=== PATIENT | female | born 1950 | race Caucasian/White ===

== ENCOUNTER 2017-07-19 10:26 | Emergency (ER) | payer OTHER, MEDICARE ==
[~2017-07-19] VITALS: Ht 160 cm; Wt 82.1 kg
[~2017-07-19 10:26] MED LIST: CALC500T12; HUMULIN; HYDR25TA6; IBUP-725; LANTUS; LOSA25TA2; MTF1000T; NIAC500T81; OMEP20TA42; SIMV80TA
[2017-07-19 10:30] VITALS: Ht 160 cm; Wt 82.1 kg
--- NOTE | 2017-07-19 12:14 | ERD ---
ER Documentation Chief Complaint Chief Complaint abdominal pain s/p fall 2 weeks ago HPI The patient is a 66-year-old female, presenting to the ER because of right upper quadrant abdominal pain for 2 weeks after she fell. It is 9 over 10, worse with movement, associated with constipation. She denies fever, chills, neck pain, chest pain, dyspnea, vomiting, dysuria. He does not smoke nor drink Past medical history: Hypertension, diabetes mellitus, dyslipidemia Past Surgical history: ROS All systems reviewed and are negative except as per history of present illness. Medications Home Meds Active Scripts Acetaminophen* (Tylenol*) 325 Mg Tablet, 2 TAB PO Q6 Y for PAIN AND OR ELEVATED TEMP, #20 TAB Prov:KIM COX MD 07/19/17 Reported Medications [Humulin] No Conflict Check 03/01/11 Lantus 03/01/11 Omeprazole (Omeprazole) 20 Mg Tablet. 03/01/11 Losartan Potassium* (Cozaar*) 25 Mg Tablet 03/01/11 Calcium Carbonate* (Oysco-500*) 1 Tab Tablet 03/01/11 Niacin* (Niacin*) 500 Mg Tablet 03/01/11 Hydrochlorothiazide (Hydrochlorothiazide) 25 Mg Tablet 01/01/10 Ibuprofen (Motrin) 400 Mg Tablet 01/01/10 Metformin* (Glucophage*) 1,000 Mg Tablet 01/01/10 Simvastatin* (Zocor*) 80 Mg Tablet 01/01/10 Allergies Allergies: Coded Allergies: Codeine (Verified Allergy, Mild, VOMITING, 07/18/12) ibuprofen (Verified Allergy, 07/18/12) PMhx/Soc History of Surgery: No Anesthesia Reaction: No Hx Neurological Disorder: No Hx Respiratory Disorders: No Hx Cardiac Disorders: Yes (HTN, HYPERLIPIDEMIA) Hx Psychiatric Problems: No Hx Miscellaneous Medical Probl: Yes (HTN, Cholesterol, Arthritis, DM) Hx Alcohol Use: No Hx Substance Use: No Hx Tobacco Use: No Smoking Status: Never smoker Physical Exam Vitals Vital Signs Date Time Temp Pulse Resp B/P Pulse Ox O2 Delivery O2 Flow Rate FiO2 07/19/17 17:17 98.7 89 16 157/70 99 Room Air 07/19/17 10:30 98.7 86 18 155/74 98 Physical Exam Const: No acute distress. Head: Atraumatic. Eyes: Normal Conjunctiva. ENT: Normal External Ears, Nose and Mouth. Neck: Full range of motion. No meningismus. Resp: Clear to auscultation bilaterally. Cardio: Regular rate and rhythm. Abd: Soft, non distended, normal bowel sounds, mild right upper quadrant tenderness, no rigidity, rebound, CVA tenderness Skin: No petechiae or rashes. Back: No midline or flank tenderness. Ext: No cyanosis, or edema. Neur: Awake and alert. No focal deficit Psych: Normal Mood and Affect. Result Diagram: 07/19/17 1255 07/19/17 1255 Results 24 hrs Laboratory Tests Test 07/19/17 12:55 07/19/17 13:02 White Blood Count 8.110^3/ul Red Blood Count 4.3610^6/ul Hemoglobin 13.7g/dl Hematocrit 41.3% Mean Corpuscular Volume 94.7fl Mean Corpuscular Hemoglobin 31.4pg Mean Corpuscular Hemoglobin Concent 33.2g/dl Red Cell Distribution Width 12.9% Platelet Count 38750^3/UL Mean Platelet Volume 10.7fl Neutrophils % 62.4% Lymphocytes % 24.1% Monocytes % 6.4% Eosinophils % 6.3% Basophils % 0.6% Nucleated Red Blood Cells % 0.0/100WBC Neutrophils # 5.110^3/ul Lymphocytes # 2.010^3/ul Monocytes # 0.510^3/ul Eosinophils # 0.510^3/ul Basophils # 0.110^3/ul Nucleated Red Blood Cells # 0.010^3/ul Sodium Level 145mmol/L Potassium Level 4.0mmol/L Chloride Level 103mmol/L Carbon Dioxide Level 30mmol/L Anion Gap 16 Blood Urea Nitrogen 14mg/dl Creatinine 0.72mg/dl Glucose Level 78mg/dl Calcium Level 9.3mg/dl Total Bilirubin 0.2mg/dl Direct Bilirubin 0.00mg/dl Indirect Bilirubin 0.2mg/dl Aspartate Amino Transf (AST/SGOT) 25IU/L Alanine Aminotransferase (ALT/SGPT) 35IU/L Alkaline Phosphatase 117IU/L Total Protein 7.7g/dl Albumin 4.2g/dl Globulin 3.50g/dl Albumin/Globulin Ratio 1.20 Lipase 35U/L Bedside Urine pH (LAB) 6.5 Bedside Urine Protein (LAB) Negative Bedside Urine Glucose (UA) Negative Bedside Urine Ketones (LAB) Negative Bedside Urine Blood Negative Bedside Urine Nitrite (LAB) Negative Bedside Urine Leukocyte Esterase (L Negative Current Medications Medications (Trade) Dose Ordered Sig/Ashley Route PRN Reason Start Time Stop Time Status Last Admin Dose Admin IV Flush 10 ml 10 ml STK-MED ONCE .ROUTE 07/19/17 14:15 07/19/17 14:16 DC Sodium Chloride (NS) 100 ml @ ud STK-MED ONCE .ROUTE 07/19/17 14:15 07/19/17 14:16 DC Iodixanol (Visipaque Locm) 100 ml STK-MED ONCE .ROUTE 07/19/17 14:15 07/19/17 14:16 DC Procedures/MDM [place] [address] Radiology Main Line: [phone] DIAGNOSTIC IMAGING REPORT Patient: DAMEON SANCHES : 1950 Age: 66 Sex: F MR #: [id number] DOS: 07/19/17 1227 Ordering MD: KIM COX MD Location: E/R Room/Bed: PROCEDURE: XR Chest. CLINICAL INDICATION: Abdominal pain. TECHNIQUE: Single AP portable chest. COMPARISON: No prior Chest x-ray FINDINGS: The cardiomediastinal silhouette is within normal limits of size. the lungs are clear without pleural effusion or focal consolidation. No pneumothorax. The osseous structures and soft tissues are unremarkable. IMPRESSION: 1. No evidence for active cardiopulmonary disease. RPTAT:AAJJ Physician Hoang Date Time Electronically viewed and signed by Physician Hoang on 07/19/2017 13:34 SURENDRA/ CC: KIM COX MD [place] [address] Radiology Main Line: [phone] DIAGNOSTIC IMAGING REPORT Patient: DAEMON SANCHES : 1950 Age: 66 Sex: F [id number] [id number] DOS: 07/19/17 1227 Ordering MD: KIM COX MD Location: E/R Room/Bed: PROCEDURE: CT Abdomen and Pelvis with contrast. CLINICAL INDICATION: Abdominal pain for 2 weeks status post fall. TECHNIQUE: Multiple contiguous axial CT images of the abdomen and pelvis were obtained following the administration of 90 cc of Visipaque 320. Coronal and sagittal reconstructions were also performed. DICOM images are available. CTDIvol (mGy): 20.22; Total Exam DLP (mGy-cm): 1146.02. One or more of the following dose reduction techniques were utilized: - Automated exposure control. - Adjustment of the mA and/or kV according to patient size. - Use of iterative reconstruction technique. COMPARISON: None available. FINDINGS: Limited imaging of the lower thorax demonstrates a tiny 4-5 mm nodule of the right middle lobe. There is a small 1.7 cm hypodense structure within the posterior right hepatic lobe. The hepatic and portal veins are patent. The gallbladder, spleen, pancreas and adrenal glands are unremarkable. The kidneys are symmetric in size and enhancement. There is no hydronephrosis or abnormal perinephric inflammation. There are no ureteral stones. Scattered few tiny simple cysts are seen bilaterally. The abdominal aorta is normal in caliber. Atherosclerotic calcification is observed. There is no periaortic / retroperitoneal lymphadenopathy. The stomach and small intestines are unremarkable. Diffuse diverticulosis is observed. A moderate volume of stool seen throughout the colon, particularly within the rectum. The appendix is normal. There are no focal inflammatory changes of the mesentery. There is no mesenteric lymphadenopathy. There is no ascites. The bladder, uterus and adnexa are unremarkable. There is no free pelvic fluid. There is no pelvic sidewall or inguinal lymphadenopathy. Small bilateral fat containing inguinal hernias are present. Degenerative changes of the lumbar spine are present. Body wall soft tissues are unremarkable. IMPRESSION: No evidence of abdominopelvic mass, lymphadenopathy or acute inflammatory pathology. Diverticulosis. No evidence of diverticulitis. Small 1.7 cm indeterminate hypodensity within the posterior right hepatic lobe. Routine follow up with CT or MRI abdomen with without contrast may be obtained. Tiny right middle lobe pulmonary nodule. Small bilateral fat containing inguinal hernias. RPTAT: HLST .La Nena Merino MD, MD Date Time Electronically viewed and signed by .La Nena Merino MD, MD on 07/19/2017 15:03 .T/ CC: KIM COX MD MEDICAL MAKING DECISION: The patient is a 66-year-old female, presenting with acute abdominal pain of unclear etiology, Possible hepatic lesion, right middle lobe nodule. She is stable for outpatient follow-up The differential diagnoses considered include but are not limited to cholelithiasis, cholecystitis, cystitis, pancreatitis, hepatitis, gastritis, peptic ulcer disease, gastric ulcer, appendicitis, diverticulitis, cholangitis, choledocholithiasis, partial small bowel obstruction. Departure Diagnosis: Primary Impression: Abdominal pain Additional Impressions: Lung nodule, solitary Liver mass Condition: Good Comments She was discharged with Motrin I discussed the findings with the patient. I advised the patient to follow-up with the primary physician in about 1-2 days for reevaluation and referral to gastroenterology for further evaluation of the hepatic mass and perfect binder setter for further evaluation of the lung mass, sooner if needed and return if any concern. Disclaimer: Inadvertent spelling and grammatical errors are likely due to EHR/ dictation software use and do not reflect on the overall quality of patient care. Also, please note that the electronic time recorded on this note does not necessarily reflect the actual time of the patient encounter. KIM COX MD Jul 19, 2017 12:14
[2017-07-19 13:04] LABS: URINE BLOOD (Dip) POC Negative (NEGATIVE)
[2017-07-19 13:15] LABS: BASOPHIL # 0.1 10^3/ul (0.0-0.1); BASOPHILS % 0.6 % (0.0-2.0); EOSINOPHILS # 0.5 10^3/ul (0.0-0.5); EOSINOPHILS % 6.3 % (0.0-7.0); HEMATOCRIT 41.3 % (37.0-47.0); HEMOGLOBIN 13.7 g/dl (12.0-16.0); LYMPHOCYTES % 24.1 % (15.0-51.0); MEAN CORPUSCULAR HEMOGLOBIN 31.4 pg (29.0-33.0); MEAN CORPUSCULAR HGB CONC 33.2 g/dl (32.0-37.0); MEAN CORPUSCULAR VOLUME 94.7 fl (82.0-101.0); MEAN PLATELET VOLUME 10.7 fl (7.4-10.4); MONOCYTE # 0.5 10^3/ul (0.3-0.9); MONOCYTES % 6.4 % (0.0-11.0); NEUTROPHIL # 5.1 10^3/ul (1.6-7.5); NEUTROPHILS % 62.4 % (39.0-77.0); PLATELET COUNT 249 10^3/UL (140-415); RED BLOOD COUNT 4.36 10^6/ul (4.20-5.40); RED CELL DISTRIBUTION WIDTH 12.9 % (11.5-14.5); WHITE BLOOD COUNT 8.1 10^3/ul (4.8-10.8)
[2017-07-19 13:34] LABS: ALBUMIN 4.2 g/dl (3.3-4.9); ALBUMIN/GLOBULIN RATIO 1.2; BILIRUBIN,INDIRECT 0.2 mg/dl (0-1.1); BILIRUBIN,TOTAL 0.2 mg/dl (0.2-1.3); CALCIUM 9.3 mg/dl (8.4-10.2); CREATININE 0.72 mg/dl (0.44-1.00); TOTAL PROTEIN 7.7 g/dl (6.1-8.1)
--- NOTE | 2017-07-19 13:34 | RADRPT ---
PROCEDURE: XR Chest. CLINICAL INDICATION: Abdominal pain. TECHNIQUE: Single AP portable chest. COMPARISON: No prior Chest x-ray FINDINGS: The cardiomediastinal silhouette is within normal limits of size. the lungs are clear without pleura l effusion or focal consolidation. No pneumothorax. The osseous structures and soft tissues are unr emarkable. IMPRESSION: 1. No evidence for active cardiopulmonary disease. RPTAT:AAJJ Bryon Siegel Physician Date Time Electronically viewed and signed by Bryon Siegel Physician on 07/19/2017 13:34 SURENDRA/
[2017-07-19] MEDS ORDERED: SOD CHLORIDE 0.9% 100 ML ONE (14:15)
[2017-07-19] MEDS ORDERED: IODIXANOL LOCM 100 ML BTL ONE (14:15)
--- NOTE | 2017-07-19 15:03 | RADRPT ---
PROCEDURE: CT Abdomen and Pelvis with contrast. CLINICAL INDICATION: Abdominal pain for 2 weeks status post fall. TECHNIQUE: Multiple contiguous axial CT images of the abdomen and pelvis were obtained following t he administration of 90 cc of Visipaque 320. Coronal and sagittal reconstructions were also perform ed. DICOM images are available. CTDIvol (mGy): 20.22; Total Exam DLP (mGy-cm): 1146.02. One or more of the following dose reduction techniques were utilized: - Automated exposure control. - Adjustment of the mA and/or kV according to patient size. - Use of iterative reconstruction technique. COMPARISON: None available. FINDINGS: Limited imaging of the lower thorax demonstrates a tiny 4-5 mm nodule of the right middle lobe. There is a small 1.7 cm hypodense structure within the posterior right hepatic lobe. The hepatic and portal veins are patent. The gallbladder, spleen, pancreas and adrenal glands are unremarkable. The kidneys are symmetric in size and enhancement. There is no hydronephrosis or abnormal perinephr ic inflammation. There are no ureteral stones. Scattered few tiny simple cysts are seen bilaterally . The abdominal aorta is normal in caliber. Atherosclerotic calcification is observed. There is no per iaortic / retroperitoneal lymphadenopathy. The stomach and small intestines are unremarkable. Diffuse diverticulosis is observed. A moderate vo lume of stool seen throughout the colon, particularly within the rectum. The appendix is normal. T here are no focal inflammatory changes of the mesentery. There is no mesenteric lymphadenopathy. T here is no ascites. The bladder, uterus and adnexa are unremarkable. There is no free pelvic fluid. There is no pelvic sidewall or inguinal lymphadenopathy. Small bilateral fat containing inguinal hernias are present. Degenerative changes of the lumbar spine are present. Body wall soft tissues are unremarkable. IMPRESSION: No evidence of abdominopelvic mass, lymphadenopathy or acute inflammatory pathology. Diverticulosis. No evidence of diverticulitis. Small 1.7 cm indeterminate hypodensity within the posterior right hepatic lobe. Routine follow up wi th CT or MRI abdomen with without contrast may be obtained. Tiny right middle lobe pulmonary nodule. Small bilateral fat containing inguinal hernias. RPTAT: HLST .La Nena Merino MD, MD Date Time Electronically viewed and signed by .La Nena Merino MD, on 07/19/2017 15:03 .T/
[2017-07-19] MEDS ORDERED: ACET325T33 PO (15:55)
[2017-07-19 17:17] VITALS: BP 157/70; PULSE 89; RESP 16; TEMP 98.7
== END 2017-07-19 17:18 | disposition home or self-care (01) ==
LOC: E/R 10:26
DX: R10.11 Right upper quadrant pain (principal); R91.1 Solitary pulmonary nodule; R16.0 Hepatomegaly, not elsewhere classified; I10 Essential (primary) hypertension; E11.9 Type 2 diabetes mellitus without complications; Z79.4 Long term (current) use of insulin; Z79.84 Long term (current) use of oral hypoglycemic drugs
CPT/HCPCS: 36415; 71010; 74177; 80053; 81003; 83690; 85025; Q9967; Z7502; Z7610

== ENCOUNTER 2018-08-14 09:17 | Day surgery (SDC) | END 2018-08-14 14:34 | disposition home or self-care (01) ==

== ENCOUNTER 2019-04-26 11:29 | Emergency (ER) | payer MEDICARE, OTHER ==
[~2019-04-26] VITALS: Ht 160 cm; Wt 79.0 kg
[~2019-04-26 11:29] MED LIST changes: +ACET325T33 PO; +ACYC800T5 PO; +AMI10 PO; +ASPI-817 PO; +ATOR-2 PO; +CAPS42.510 TOP; +GABA300C16 PO; +HYDR25TA6 PO; +IBUP-1542 PO; +LOSA100T15 PO; +NOVMIX SC; +OMEP20CA16 PO; +RANI300T PO; +SITA1TAB5 PO
[2019-04-26 11:32] VITALS: Ht 160 cm; Wt 79.0 kg
[2019-04-26] MEDS ORDERED: morphine 4 MG/ML VIAL IV STA (11:58)
[2019-04-26] MEDS ORDERED: ONDANSETRON 4 MG INJ IV STA (11:58)
[2019-04-26 13:57] VITALS: BP 132/68; PULSE 74; RESP 20
== END 2019-04-26 14:21 | disposition home or self-care (01) ==
LOC: E/R 11:29
DX: M54.9 Dorsalgia, unspecified (principal); R07.9 Chest pain, unspecified; I10 Essential (primary) hypertension; Z79.4 Long term (current) use of insulin; Z79.82 Long term (current) use of aspirin
CPT/HCPCS: 71045; 80053; 83880; 84484; 85025; 85610; 93005; 96374; 96375; 99284; J2270; J2405

== ENCOUNTER 2019-05-03 22:06 | Emergency (ER) | payer MEDICARE, OTHER ==
[~2019-05-03] VITALS: Ht 160 cm; Wt 80.5 kg
[~2019-05-03 22:06] MED LIST changes: -ACET325T33 PO; -CALC500T12; -HUMULIN; -HYDR25TA6; -IBUP-725; -LANTUS; -LOSA25TA2; -MTF1000T; -NIAC500T81; -OMEP20TA42; -SIMV80TA
[2019-05-03 22:27] VITALS: Ht 160 cm; Wt 80.5 kg
[2019-05-04] MEDS ORDERED: KETOROLAC 30 MG INJ IM STA (00:31)
[2019-05-04 02:15] VITALS: BP 181/86; PULSE 82; RESP 18
== END 2019-05-04 02:16 | disposition home or self-care (01) ==
LOC: FTE 22:06
DX: B02.9 Zoster without complications (principal); I10 Essential (primary) hypertension; E10.9 Type 1 diabetes mellitus without complications; Z79.4 Long term (current) use of insulin; Z79.82 Long term (current) use of aspirin
CPT/HCPCS: 96372; 99284; J1885